=== PATIENT | male | born 1970 | race Caucasian/White ===

== ENCOUNTER 2018-12-27 11:31 | Emergency (ER) | payer OTHER ==
[~2018-12-27] VITALS: Ht 182.9 cm; Wt 104.3 kg
[2018-12-27] MEDS ORDERED: LOTREL 5-10 MG1 CAP (11:43)
== END 2018-12-27 21:07 | disposition home or self-care (01) ==
LOC: ER 11:31 → CPU-OBS 12:09 → ER 12:09
DX: R07.89 Other chest pain (principal)
CPT/HCPCS: G0378; G0379; 93005

== ENCOUNTER 2020-11-07 14:38 | Emergency (ER) | payer OTHER ==
[~2020-11-07] VITALS: Ht 182.9 cm; Wt 104.3 kg
[~2020-11-07 14:38] MED LIST: LOTREL 5-10 MG1 CAP
== END 2020-11-07 18:50 | disposition home or self-care (01) ==
LOC: ER 14:38
DX: R07.89 Other chest pain (principal)